=== PATIENT | female | born 1990 | race Hispanic/Latino ===

== ENCOUNTER 2022-05-05 06:16 | Inpatient (IN) | payer OTHER, SELFPAY ==
[2022-05-05] MEDS ORDERED: Lidocaine 1% (PF) 30 ML VIAL SC PRN (06:55)
[2022-05-05] MEDS ORDERED: hydrALAZINE 20 MG/ML VIAL SLOW IVP PRN ×2 (06:55→17:41)
[2022-05-05] MEDS ORDERED: Promethazine HCl 25 MG/ML VIAL IM PRN ×2 (06:55→12:56)
[2022-05-05] MEDS ORDERED: Ondansetron PF 4 MG/2 ML Vial IVP PRN ×3 (06:55→17:41)
[2022-05-05 07:06] VITALS: BMI 37.5
[2022-05-05 07:29] LABS: Hemoglobin 13.5 g/dL (12.0-15.5); Mean Corpuscular HGB CONC 34.7 g/dL (32.0-36.0); Mean Corpuscular Hemoglobin 29.9 pg (27.0-33.0); Mean Corpuscular Volume 86.1 fl (81.6-98.3); Mean Platelet Volume 8.9 fl (7.4-10.4); Platelet Count 287 10x3/uL (150-450); RBC Distribution Width 13.4 % (11.5-14.5); Red Blood Cell (RBC) Count 4.52 10x6/uL (3.90-5.03); White Blood Cell (WBC) Count 11.5 10x3/uL (3.5-10.5)
[2022-05-05] MEDS ORDERED: Bupivacaine HCl 0.5%/Epinephrine 1:200,000/PF 30 ml Vial ONE (08:00)
[2022-05-05] MEDS ORDERED: Sodium Chloride 0.9% (PF) 10 ML VIAL ONE (08:00)
[2022-05-05 08:05] LABS: HIV (1/2) Antibody/Antigen Non-Reactive (NonReactive); HIV 1/2 INDEX 0.07 S/CO (<1.00); Hep B Surf Ag Non-Reactive S/CO (NonReactive)
[2022-05-05 08:19] LABS: SARS-CoV-2 NAA Rapid Test Not Detected (NotDetected)
[2022-05-05 09:49] LABS: Syphilis Antibody Nonreactive (Nonreactive); Syphilis Antibody Index 0.07 S/CO (<1.00 Non-Reactive)
[2022-05-05] MEDS ORDERED: Misoprostol 100 MCG TAB PO SCH (10:45)
[2022-05-05] MEDS ORDERED: Fentanyl 2 mcg/Bup 0.1% Cadd 100 ML ONE (12:25)
[2022-05-05] MEDS ORDERED: Moisturizing Cream (Eucerin) 113 GM JAR TOP PRN (12:56)
[2022-05-05] MEDS ORDERED: Naloxone HCl 0.4 mg/ml Vial IVP PRN ×2 (12:56)
[2022-05-05] MEDS ORDERED: Lactated Ringer's 500 ML IV PRN (12:56)
[2022-05-05] MEDS ORDERED: diphenhydrAMINE 50 MG/ML VIAL IVP PRN (12:56)
[2022-05-05] MEDS ORDERED: Acetaminophen 325 MG TAB PO PRN (12:56)
[2022-05-05] MEDS ORDERED: ePHEDrine Sulfate 50 MG/10 ML VIAL SLOW IVP PRN (12:56)
[2022-05-05] MEDS ORDERED: Communication Order-Pharmacy FS SCH (13:00)
[2022-05-05] MEDS ORDERED: Fentanyl 2 mcg/Bupivacaine 0.1% Cassette 100 ML EPIDURAL SCH (13:00)
[2022-05-05] MEDS ORDERED: Dextrose 5%-Lactated Ringers 1,000 ML IV SCH (14:00)
[2022-05-05] MEDS: NS w/ Oxytocin 30 units 500 ML IV SCH ×2 (14:50→16:25)
[2022-05-05] MEDS ORDERED: Misoprostol 200 MCG TAB ONE (15:04)
[2022-05-05] MEDS ORDERED: Misoprostol 200 MCG TAB PR SCH (16:00)
[2022-05-05] MEDS ORDERED: Ibuprofen 800 MG TAB PO SCH (17:00)
[2022-05-05] MEDS ORDERED: Boostrix 0.5 ML (Tdap) VIAL IM ONE (17:41)
[2022-05-05] MEDS ORDERED: Bisacodyl 10 MG SUPP PR PRN (17:41)
[2022-05-05] MEDS ORDERED: Milk Of Magnesia 30 ML UDCUP PO PRN (17:41)
[2022-05-05] MEDS ORDERED: Ferrous Sulfate 325 MG TAB PO SCH (18:00)
[2022-05-05] MEDS: Docusate 100 MG CAP PO SCH (21:19)
[2022-05-05] MEDS: Ibuprofen 800 MG TAB PO SCH (23:49)
[2022-05-06] MEDS: Ferrous Sulfate 325 MG TAB PO SCH (07:04)
[2022-05-06] MEDS: Docusate 100 MG CAP PO SCH ×2 (08:08→21:43)
[2022-05-06] MEDS: Ibuprofen 800 MG TAB PO SCH ×2 (08:08→17:20)
[2022-05-06] MEDS ORDERED: Benzocaine-Menthol 82.5 ML CAN TOP PRN (21:23)
[2022-05-07] MEDS: Ibuprofen 800 MG TAB PO SCH ×2 (00:41→07:58)
[2022-05-07 07:32] VITALS: BP 100/60; TEMP 98.5
[2022-05-07] MEDS: Ferrous Sulfate 325 MG TAB PO SCH ×2 (07:57→10:20)
[2022-05-07] MEDS: Docusate 100 MG CAP PO SCH (07:58)
== END 2022-05-07 11:40 | disposition home or self-care (01) | DRG 807 ==
LOC: CSHLD/OP 06:16 → CSHLD 07:00 → CSHPP 17:41
PROVIDERS: ADMIT Student in an Organized Health Care Education/Training Program; ATTEND Student in an Organized Health Care Education/Training Program
PROC: 10E0XZZ Delivery of Products of Conception, External Approach (ICD-10-PCS; principal; 2022-05-05)
PROC: 0HQ9XZZ Repair Perineum Skin, External Approach (ICD-10-PCS; 2022-05-05)
DX: O42.02 Full-term premature rupture of membranes, onset of labor within 24 hours of rupture (principal); Z37.0 Single live birth; Z20.822 Contact with and (suspected) exposure to COVID-19; Z3A.37 37 weeks gestation of pregnancy; O70.0 First degree perineal laceration during delivery; Z91.010 Allergy to peanuts; O76 Abnormality in fetal heart rate and rhythm complicating labor and delivery; O69.89X0 Labor and delivery complicated by other cord complications, not applicable or unspecified; O69.2XX0 Labor and delivery complicated by other cord entanglement, with compression, not applicable or unspecified; R33.9 Retention of urine, unspecified; O90.89 Other complications of the puerperium, not elsewhere classified
CPT/HCPCS: 36415; 51702; 76815; 85027; 86780; 86850; 86900; 86901; 87340; 87389; 99285; J2590; U0002